=== PATIENT | male | born 1930 | race Caucasian/White ===

== ENCOUNTER 2016-05-16 12:08 | Inpatient (IN) | payer OTHER ==
[~2016-05-16] VITALS: Ht 165.1 cm; Wt 69.3 kg
--- NOTE | ~2016-05-16 | H ---
[facility] [address] [place] [address] HISTORY AND PHYSICAL Name: ALEN MUNOZ Room #: 208-P ADM IN M.R.#: [id number] Admission: 05/16/16 Attend Phys: Boo Person MD Discharge: Date of : 29 Report #: [id number] THIS REPORT FOR: //name// CC: Boo Person HISTORY OF PRESENT ILLNESS: This patient is well known to me through diabetic routine foot care and diabetic amputations over several years. The patient currently has a ulceration of the left second toe, left heel, right mid foot and right heel. He is receiving IV antibiotics per Dr. Granados. PAST MEDICAL HISTORY: ALLERGIES: No known drug allergies. MEDICATIONS: 1. Aspirin 81 mg 1 daily. 2. Felodipine extended release 10 mg 1 each morning. 3. Glipizide extended release 2.5 mg 1 each morning. 4. Tamsulosin hydrochloride 0.4 mg 1 each morning. 5. Bisoprolol fumarate 5 mg at bedtime. 6. Torsemide 20 mg Friday, Wednesdays, Fridays. 7. Sodium bicarbonate 650 mg 1 tablet twice a day. 8. Lantus at bedtime. 9. Timolol 0.5 mg 1 drop in each eye every morning. PAST MEDICAL HISTORY: Diabetes insulin-dependent, arthritis. PAST SURGICAL HISTORY: Foot amputations of the left fifth digit and a pacemaker by Dr. José Luis Story. His diabetes is managed by Dr. Boo Person. PHYSICAL EXAMINATION: VASCULAR STATUS: Dorsalis pedis pulses are 0/4 bilaterally. Posterior tibial pulses are 0/4 bilaterally. Capillary refill time is delayed. Edema is minimal bilaterally. NEUROLOGICAL: Protective sensation is absent bilaterally to above the ankle level. DERMATOLOGICAL: Left second digit dorsal aspect reveals an ulceration measuring approximately 4.5 cm in diameter with exposure to bone and necrotic tissue. Left plantar posterior heel reveals an ulceration to the subcutaneous level. No exposed bone. Right foot reveals an ulceration on the medial aspect of the mid foot at approximately the level of the medial cuneiform and navicular level, down to the subcutaneous level. The right heel medial aspect reveals an ulceration to the subcutaneous level. Both of these ulcerations revealed no signs of infection or exposure of bone. MUSCULOSKELETAL: The right foot displays Charcot foot deformity and hammertoe deformities of digits 2 through 5. Left foot reveals hammertoe deformities of digits 2, 3, 4. The fifth digit has previously been amputated to the [address] [address] HISTORY AND PHYSICAL Name: ALEN MUNOZ Room #: 208-P [facility] IN ..#: [id number] Admission: 05/16/16 Attend Phys: Boo Person MD Discharge: Date of : 29 Report #: [id number] metatarsophalangeal joint level. Dr. Reinaldo Hair performed interventional radiology yesterday and was able to reveal that the anterior tibial artery and peroneal arteries bilaterally were patent. The posterior tibial arteries bilaterally were not patent. Cultures of the left wounds revealed group B strep and Proteus. ASSESSMENT: Left second digit ulceration with underlying osteomyelitis. Left heel ulceration, subcutaneous level. The plan is amputation of the left second digit to the metatarsophalangeal joint level and debridement of left heel ulcer. New cultures will be taken within the operating room. The procedures and postoperative care course were discussed at length with the patient. Risks and complications were discussed including but not limited to bleeding, need for more surgery, delay in healing of wound, soft tissue and bone, continued infection, loss of foot, and loss of life. No guarantees were given. The patient states that he understands these risks. Upon completion of the procedures, the patient will be readmitted to the floor for continued IV antibiotics and extended postoperative care. <ELECTRONICALLY SIGNED> By: Shira Kapoor DPM 05/22/16 1736 1228 1337 Shira Kapoor DPM /nt
--- NOTE | ~2016-05-16 | O ---
[facility] [place] [address] [address] [place] [address] OPERATIVE REPORT Name: ALEN MUNOZ Room #: 208-P [facility] IN M.R.#: [id number] Admission: 05/16/16 Attend Phys: Boo Person MD Discharge: Date of : 29 Report #: [id number] THIS REPORT FOR: //name// CC: Boo Person DATE OF SERVICE: 05/22/2016 PREOPERATIVE DIAGNOSES: 1. Osteomyelitis of the left second digit. 2. Ulceration of the left heel. POSTOPERATIVE DIAGNOSES: 1. Osteomyelitis of the left second digit. 2. Ulceration of the left heel. NAME OF THE OPERATIONS: 1. Amputation of the left second digit to the metatarsophalangeal joint level. 2. Debridement of left heel ulceration. ANESTHESIA: IV sedation and local. HEMOSTASIS: None. ESTIMATED BLOOD LOSS: 3 mL. PROCEDURE IN DETAIL: Under mild sedation, the patient was brought to the operating room and placed on the operating table in the supine position. Following IV sedation, local anesthesia was obtained about surgery site utilizing a total of 12 mL of a 1:1 mixture of 1% lidocaine plain and 0.5% Marcaine plain. The foot was then scrubbed, prepped, and draped in the usual aseptic manner. Attention was then directed to the second digit where two converging semielliptical incisions were made at the base of the second digit. The incisions encompassed the second digit just distal to the second metatarsophalangeal joint. The incisions were then deepened through the subcutaneous tissues with care being taken to identify and retract all vital neural and vascular structures. All bleeders were ligated and cauterized as necessary. At this time, dissection was continued down to the level of the second metatarsophalangeal joint, which was then disarticulated utilizing a 15 blade. At this time, the second digit was then passed from the operative field in toto. This specimen was retained to be sent to pathology for both ____ and laparoscopic studies. The wound was then pulse lavaged with 1 liter of sterile normal saline and bacitracin solution. The remaining bleeders were then [facility] [address] [place] [address] OPERATIVE REPORT Name: TAMMYALEN Karlie Room #: 208-P ADM IN M.R.#: [id number] Admission: 05/16/16 Attend Phys: Boo Person MD Discharge: Date of : 29 Report #: [id number] cauterized and ligated as necessary. The wound was inspected for any remaining necrotic or devitalized tissue and it should be noted that none was found. The skin was then reapproximated and coapted utilizing 3-0 nylon in a simple interrupted suture technique. A Jayda drain was placed at midline incision. Attention was then directed to the plantar posterior aspect of the left heel where an ulceration was identified. Deep cultures from within the ulceration were obtained for both aerobic and anaerobic bacteria as well as fungal. The wound was then debrided sharply for any necrotic or devitalized tissue. The ulcer was then pulse lavaged of 2 liters of sterile normal saline and bacitracin solution. Both wounds were then dressed with Betadine-soaked Adaptic and covered with sterile compressive dressing consisting of 4 x 4s, ABD pads, Kerlix, and an Geovani wrap. The patient tolerated the procedures and anesthesia well. He was transferred to the recovery room and vital signs stable and vascular status intact to the left foot. Following a period of postoperative monitoring, the patient will be readmitted to the floor for continued IV antibiotics and a continued postoperative recovery. <ELECTRONICALLY SIGNED> By: Shira Kapoor DPM 05/23/16 1206 [id number] Shira Kapoor DPM /nt
--- NOTE | ~2016-05-16 | HC ---
[facility] [place] [address] [address] [place] [address] CONSULTATION Name: ALEN MUNOZ Room #: 208-P [facility] IN M.R.#: [id number] Admission: 05/16/16 Attend Phys: Boo Person MD Discharge: 05/27/16 Date of : 29 Report #: [id number] THIS REPORT FOR: //name// CC: Boo Person DATE OF SERVICE: 05/17/2016 PERSONAL PHYSICIAN: Boo Person M.D. CHIEF COMPLAINT: Left toe wound with diabetes. HISTORY OF PRESENT ILLNESS: This is an 85-year-old white male who I have followed for several years off and on for various infections of his feet and toes, requiring amputations. The patient recently had acute kidney injury, is now on hemodialysis. The patient most recently had an amputation and was currently rid of his toe and was rehabbing, brought to our skilled facility where it was noted by physician credit control assistant Nikki that his left second toe was necrotic with exposed bone and extremely foul odor. At that time, it was felt that the patient needed to be returned to the hospital for evaluation of this and most likely amputation of that toe if not even possible transmetatarsal amputation versus below the knee amputation. Arterial Doppler has just been performed and is pending. I have been asked to care for the patient while he is here in the hospital. The patient denies any other associated symptoms or complaints at this time. PAST MEDICAL HISTORY: Significant for end-stage renal disease, on hemodialysis; type 2 diabetes; anemia; pacemaker placement and hypertension. DRUG ALLERGIES: BACTRIM. CURRENT MEDICATIONS: Multiple, I reviewed the patient's medication list. FAMILY HISTORY: Not pertinent to current medical condition. REVIEW OF SYSTEMS: CONSTITUTIONAL: The patient denies fevers or chills. NEUROLOGIC: The patient denies numbness, tingling, weakness in arms or legs. EYES: No complaints. ENT: No complaints. CARDIAC: The patient denies chest pain, palpitations or peripheral edema. RESPIRATORY: The patient denies shortness of breath, cough or wheezes. GASTROINTESTINAL: The patient denies nausea, vomiting or abdominal pain. GENITOURINARY: The patient denies urgency or frequency. MUSCULOSKELETAL: No complaints. SKIN: The patient has a stage 2 decubitus ulcer around his coccygeal region as well as skin tear in his right forearm, unstageable ulceration over his [address] [place] [address] CONSULTATION Name: ALEN MUNOZ Room #: 208-P [facility] IN M.R.#: [id number] Admission: 05/16/16 Attend Phys: Boo Person MD Discharge: 05/27/16 Date of : 29 Report #: [id number] foot on his right mid foot, unstageable decubitus ulcer on his left heel and a necrotic ulcer over the dorsal aspect of his left second toe. PHYSICAL EXAMINATION: VITAL SIGNS: Stable. The patient is afebrile. GENERAL: This is an alert and oriented x 3, pleasant white male who appears chronically ill. HEENT: Normocephalic, atraumatic. Mucous membranes are dry. Pupils are round. Sclerae are white. NECK: Without JVD or masses. LUNGS: Clear. HEART: Regular. ABDOMEN: Soft, otherwise without organomegaly, rebound or guarding. EXTREMITIES: The patient moves all extremities without difficulty. Evaluation of sacrococcygeal area reveals a stage 2 decubitus ulcer in the coccygeal region. There is a skin tear in the right forearm. Bilateral lower extremities show 2+ edema with stasis dermatitis changes. There is also an unstageable ulceration on the right mid foot with eschar and an unstageable decubitus ulcer on his left heel, which is 100% slough filled with eschar and there is the necrotic left second toe, which is foul smelling with what was palpable bone exposed. Distal pulses are faint but the feet are warm. NEUROLOGIC: Cranial nerves 2-12 are grossly intact. Motor and sensory are grossly intact. LABORATORY DATA: White count 9.2, hemoglobin 8.6, BUN 26, creatinine 2.3 and albumin is low at 2.6. IMPRESSION: 1. Infected left second toe with necrosis and exposed bone consistent with osteomyelitis. 2. Diabetes mellitus. 3. End-stage renal disease, on hemodialysis. 4. Decubitus ulcer of the left heel, unstageable. 5. 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 6. History of peripheral arterial disease. 7. Generalized debility. PLAN: At this time, we will await the peripheral arterial Dopplers to see the extent of the patient's arterial disease and if any acute intervention can be performed. If so, we will have Dr. Chand perform this intervention. has also been consulted for evaluation of amputation of the second toe. I have also talked to the patient about the possibility that he might possibly need a transmetatarsal amputation or even possibly a below the knee amputation depending on how the arterial flow is. At this time, we will go ahead and [address] [place] [address] CONSULTATION Name: ALEN MUNOZ Room #: 208-P [facility] IN .R.#: [id number] Admission: 05/16/16 Attend Phys: Boo Person MD Discharge: 05/27/16 Date of : 29 Report #: [id number] . Wound orders have been put in by the wound care nurse, please see her notes. We will continue to follow the patient. <ELECTRONICALLY SIGNED> By: Stiven Forrester MD 05/31/16 0826 1426 1923 Stiven Forrester MD /nt
--- NOTE | ~2016-05-16 | H ---
[facility] [address] [place] [address] HISTORY AND PHYSICAL Name: ALEN MUNOZ Room #: 407-P ADM IN M.R.#: [id number] Admission: 05/16/16 Attend Phys: Boo Person MD Discharge: Date of : 29 Report #: [id number] THIS REPORT FOR: //name// CC: Boo Person DATE OF SERVICE: 05/16/2016 CHIEF COMPLAINT: Left foot wound. HISTORY OF PRESENT ILLNESS: The patient is an 85-year-old gentleman who was admitted from [facility] [place] today for evaluation of wounds and possible infection of the left foot. His history was complicated, and several months ago, he was admitted with a bowel obstruction and actually underwent surgical treatment of incarcerated left inguinal hernia that was complicated by an acute kidney injury event that was medically stabilized and then [facility]. About a month later, he was readmitted with general weakness, and at this point, his renal function deteriorated. Ultimately he had profuse edema and was started on hemodialysis, that stabilized and he was tolerating as an outpatient. He has had chronic Charcot foot wound on the right sole of his foot that has been fairly stable. There are wounds in the left foot that had been watched at the facility. Dr. Forrester knows him well and called stating that he had a second toe with possibly exposed bone and an area on the left heel. He is admitted for evaluation. PAST MEDICAL HISTORY: End-stage renal disease, now hemodialysis requiring; diabetes type 2; history of left incarcerated inguinal hernia, surgically treated in late 2016; anemia of chronic disease; bradycardia, he has a pacemaker implant; hypertension. PAST SURGICAL HISTORY: As above. FAMILY HISTORY: Noncontributory. SOCIAL HISTORY: He is a . His only family member is a niece who is in [place]. No known chronic alcohol or tobacco use. ALLERGIES: BACTRIM caused hyperkalemia. MEDICATIONS: Flomax 0.4 mg, bisoprolol 5 mg, aspirin 81 mg, Tylenol, timolol eye drops, NovoLog with meals. REVIEW OF SYSTEMS: He denies headache, chest pain, shortness of breath, abdominal pain, nausea, vomiting, diarrhea, constipation, dysuria, syncope. PHYSICAL EXAMINATION: [facility] [address] [place] [address] HISTORY AND PHYSICAL Name: ALEN MUNOZ Room #: 407-P [facility] IN ..#: [id number] Admission: 05/16/16 Attend Phys: Boo Person MD Discharge: Date of : 29 Report #: [id number] VITAL SIGNS: Temperature 36.4, pulse 94, respirations 18, blood pressure 135/68, O2 sat 95% on room air. GENERAL: He is awake and alert, sitting up in bed in no distress. He recognizes me. LUNGS: Clear. HEART: Regular. ABDOMEN: Soft, normoactive bowel sounds. EXTREMITIES: Just 1+ edema on the left lower extremity. There is some erythema of the ankle. There is a foul smell to the second toe with crusted open wound, may be some subcutaneous tissues exposed. There is a smaller 0.5 cm open area on the left heel. The right foot has an old Charcot joint deformity with scab on the plantar surface but no open areas ___ dry skin bilateral. NEUROLOGIC: Global strength 4/5 throughout. ASSESSMENT: 1. Infected left diabetic foot wound. 2. Suspect peripheral artery disease. 3. End-stage renal disease with dialysis done earlier today. 4. Diabetes type 2. 5. Hypertension. 6. Anemia of chronic disease. 7. Charcot joint with a wound to the right foot. PLAN: I will ask Dr. Forrester to see him who knows him quite well. We discussed the possibility of an angiogram that may well need to be coordinated with the time of his dialysis for consideration of procedure to the left leg. I will ask Dr. Granados to see him in consultation regarding infected diabetic foot wound, initial dose of vancomycin to be given tonight and other home medications to continue, Lovenox for DVT prophylaxis. <ELECTRONICALLY SIGNED> By: Boo Person MD 05/17/16 0937 [id number] Boo Person MD /nt
--- NOTE | ~2016-05-16 | HC ---
[facility] [address] [address] [place] [address] CONSULTATION Name: ALEN MUNOZ Room #: 407-P ADM IN M.R.#: [id number] Admission: 05/16/16 Attend Phys: Boo Person MD Discharge: Date of : 29 Report #: [id number] THIS REPORT FOR: //name// CC: Boo Person REASON FOR CONSULTATION: I was asked to evaluate concerning diabetic foot infection, left. HISTORY OF PRESENT ILLNESS: An 85-year-old transferred from [facility] with purulent drainage from his left second toe and increased pain in the left foot. He has a history of diabetes and peripheral vascular disease along with end-stage renal disease, now on hemodialysis. He dialyzes through a right chest dialysis catheter. He has Charcot foot deformity on the right. He has had increasing discomfort in the left heel associated with a wound and progressive wound to the left second toe. He denies any recent antibiotic usage. ALLERGIES: BACTRIM with hyperkalemia. MEDICATIONS: As noted on his MAR, now on vancomycin. PAST MEDICAL HISTORY: End-stage renal disease, diabetes, bradycardia with pacemaker, hypertension, anemia of chronic disease, incarcerated inguinal hernia status post repair. FAMILY HISTORY: Noncontributory. SOCIAL HISTORY: , nonsmoker, no significant alcohol intake. REVIEW OF SYSTEMS: No cough or sputum production, chest pain, nausea, vomiting or diarrhea. PHYSICAL EXAMINATION: VITAL SIGNS: Afebrile, hemodynamically stable. GENERAL: Sitting up in a wheelchair. HEENT: Unremarkable. CHEST: Clear. HEART: Regular, right chest dialysis catheter tunnel unremarkable. ABDOMEN: Soft and nontender. EXTREMITIES: Right lower extremity had changes of Charcot foot involving the ankle. He had small eschar to the mid foot pressure point. Diminished pulses in the foot, 1+ edema, 1+ dependent rubor involving the pretibial skin. Left lower extremity, diminished pulses throughout. Could not palpate pulses in the foot. Odorous drainage from the left second toe with sausage deformity and ulcer over the dorsum of the toe involving the middle phalanx and PIP region. Also had an eschar over the medial distal phalanx of toe #1. Also had a sinus tract to the heel medially. He had tenderness involving the heel region. X-ray [facility] [address] [place] [address] CONSULTATION Name: ALEN MUNOZ Room #: [facility] IN .R.#: [id number] Admission: 05/16/16 Attend Phys: Boo Person MD Discharge: Date of : 29 Report #: [id number] of the foot, no osteomyelitis evident. LABORATORY STUDIES: Creatinine 2.3, bicarbonate 32. Hemoglobin 8.6, white count 9.2, platelet count 215,000. Liver function tests normal. IMPRESSION: An 85-year-old with peripheral vascular disease and diabetes with infection of his left second toe and nonhealing wound to the left plantar heel. I suspect vascular insufficiency, underlying cause here. Recommend further vascular workup. It is evident that in June of 2005, he did have an arteriogram of the lower extremities, which did show distal occlusive disease. Would also consider vascular surgery evaluation. <ELECTRONICALLY SIGNED> By: Leonardo Granados MD 05/20/16 1010 1037 1130 Leonardo Granados MD /nt
--- NOTE | ~2016-05-16 | D ---
[facility] [place] [address] [place] [address] DISCHARGE SUMMARY Name: ALEN MUNOZ Room #: 208-P ADM IN M.R.#: [id number] Admission: 05/16/16 Attend Phys: Boo Person MD Discharge: Date of : 29 Report #: [id number] THIS REPORT FOR: //name// CC: Boo Person FINAL DIAGNOSES: 1. Peripheral artery disease of the left leg. 2. Diabetes foot wound of the second toe of the left foot. 3. End-stage renal disease. 4. Hypertension. 5. Diabetes type 2. 6. Anemia of chronic disease. PROCEDURES: 1. Arteriogram and angioplasty of the left superficial femoral artery and popliteal artery. 2. Amputation of the second left toe. 3. Hemodialysis. HOSPITAL COURSE: The patient was admitted for evaluation and treatment of the wound on his right foot, both heal and second toe. Ultimately, he was diagnosed with peripheral artery disease and was taken by IR for angioplasty, please see that report. Several days later, he had a second toe amputation and please see that separately dictated operative note. Wound care followed along with ID. Ultimately, he was adjusted to oral Augmentin. He tolerated dialysis as usual and his other home medications were continued. Blood sugars remained in the mid 100s off insulin. DISPOSITION: To be transferred to a long-term care shelter and [place]. He will be under the care of the inhouse physician and his outpatient hemodialysis. He will continue oral Augmentin for another week along with his other medications. He will be directed either to outpatient wound care in the [facility] or [facility] or follow up with Dr. Rodrigez as directed. <ELECTRONICALLY SIGNED> By: Boo Person MD 05/27/16 0945 1515 1608 Boo Person MD /nt
--- NOTE | ~2016-05-16 | HC ---
[facility] [place] [address] CONSULTATION Name: ALEN MUNOZ Room #: 208-P [facility] IN M.R.#: [id number] Admission: 05/16/16 Attend Phys: Boo Person MD Discharge: 05/27/16 Date of : 28 Report #: [id number] THIS REPORT FOR: //name// CC: Boo Person REASON FOR ADMISSION: Left second toe wound. REASON FOR CONSULTATION: End-stage renal disease. HISTORY OF PRESENT ILLNESS: The patient is an 85-year-old who is well known to us. He was started on dialysis in the recent admission when he was admitted due to bowel obstruction. 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 He follows the wound care. He was seen by the wound care and was found to have a second toe wound with possibly exposed bone on the area. He was admitted for further evaluation and management. The patient was unaware of this whole deal. He dialyzes every Friday, , Friday and he last dialyzed yesterday. PAST MEDICAL HISTORY: 1. Bowel obstructions. 2. End-stage renal disease. 3. Inguinal hernia. 4. Anemia of chronic disease. 5. Status post pacemaker insertions for bradycardia. 6. Hypertension. 7. End-stage renal disease maintained on dialysis. MEDICATIONS: 1. Tamsulosin. 2. Bisoprolol. 3. Torsemide. 4. Aspirin. 5. Timolol. ALLERGIES: BACTRIM. FAMILY HISTORY: No renal diseases in the family. SOCIAL HISTORY: He lives in a nursing facility. He used to live independently. No drug or alcohol abuse. REVIEW OF SYSTEMS: GENERAL: No fever or chills. CARDIOVASCULAR: No chest pain or palpitation. PULMONARY: No cough or hemoptysis. GASTROINTESTINAL: No nausea or vomiting. SKIN: As per the history of present illness. [facility] [address] [place] [address] CONSULTATION Name: ALEN MUNOZ Room #: 208-P [facility] IN [facility].#: [id number] Admission: 05/16/16 Attend Phys: Boo Person MD Discharge: 05/27/16 Date of : 28 Report #: [id number] PHYSICAL EXAMINATION: GENERAL: The patient is alert, oriented. VITAL SIGNS: Blood pressure is mildly elevated at 160/60. HEAD AND NECK: No jugular venous distention, no bruit, no thyromegaly. LUNGS: Clear to auscultation. CARDIOVASCULAR: Regular with no rub detected. ABDOMEN: Soft, nontender without hepatosplenomegaly. LOWER EXTREMITIES: Deformed bilateral feet with a left second toe wound. LABORATORY VALUES: Reviewed. His most recent creatinine is 1.6. He is due for dialysis today. ASSESSMENT, IMPRESSION, PLAN: 1. Acute kidney injury requiring dialysis in the past. 2. Peripheral vascular disease. 3. Bradycardia with a pacemaker. 4. Hypertension. 5. Left foot wound. 6. The patient's wound is currently being addressed by his primary care physician. 7. He has required dialysis in the past. There is no records of urine output; however, his creatinine from yesterday was 1.6. I will not plan on dialyzing him today until we get the labs. He might have recovered his kidney function and will follow and decide about that. 8. He is anemic and his anemia will need to be addressed accordingly. I will touch base with his dialysis units about his regimen and resume his outpatient anemia protocol. 9. Consent of exposed bone on the left second toe is being addressed by his primary care team. <ELECTRONICALLY SIGNED> By: Hui Armstrong MD 06/11/16 1523 [id number] Hui Armstrong MD /nt
--- NOTE | ~2016-05-16 | S ---
[facility] [place] [address] SURGICAL PATH RPT PROCEDURE Name: ALEN PANTOJA Room #: 208-P ADM IN M.R.#: [id number] Admission: 05/16/16 Date of : 28 Discharge: Report #: [id number] Path Case #: [id number] PATHOLOGY REPORT COLLECTION DATE: 05/22/2016 RECEIVED DATE: 05/23/2016 SUBMITTING PHYS: Dr. Shira Kapoor OTHER PHYS: Dr. Boo Person SPECIMEN(S) RECEIVED: A.Left foot second toe * * * * * * * * * * * * FINAL DIAGNOSIS: Toe, left foot second toe, amputation: - Marked acute inflammation extending into underlying bone, leading to acute osteomyelitis. - Skin margin viable and unremarkable. - Separate fragments of bone viable and unremarkable. (IUV:mgr; d/t: 05/24/16) PATHOLOGIST: Sharon Sellers M.D. REPORT ELECTRONICALLY SIGNED BY: Sharon Sellers M.D. DATE/TIME: 05/24/2016 16:46 * * * * * * * * * * * * GROSS PATHOLOGY: The specimen is received in formalin labeled "Alen Pantoja, left foot second toe". Received is an amputated digit measuring 3.6 x 2.5 x 2.2 cm in greatest dimensions. The bone margin is jagged in appearance and surrounded by moderate amount of white-yanez fibrous tissue. The nail is present displaying a light yanez slightly thickened appearance measuring 1.0 x 0.3 cm. Distal to the nail bed, there is a well-circumscribed, irregular in contour and light yanez to vogt-brown lesion measuring 1.8 x 1.7 cm, which is 0.2 cm from the closest skin margin. A full-thickness cross-section is submitted in cassettes A1 and A2, divided into distal and proximal aspects, following decalcification. Also received within the specimen container are additional segments of light yanez bone measuring 2.7 x 2.2 x 1.1 cm in greatest dimensions. Seat Builder sections of bone are submitted in cassette A3, following decalcification. (CAA; 05/23/2016) CLINICAL HISTORY: [address] [place] [address] SURGICAL PATH RPT PROCEDURE Name: ALEN PANTOJA Karlie Room #: 208-P ADM IN M.R.#: [id number] Admission: 05/16/16 Date of : 28 Discharge: Report #: [id number] Path Case #: [id number] Left foot, infected INITIAL CPT CODE(S): A; 03249, 81700 Professional services performed by [facility] at [facility] [address] [place] [address] Technical services performed by [facility] at [address] [place] [address], [facility] [address] [address]. [facility] [address] [place] [address] PHONE: [phone] DIRECTOR: Saúl Fofana M.D. * * * END OF REPORT * * *
[~2016-05-16 12:08] MED LIST: ACETAMINOPHEN325 M1 PO; ANTACID650 MG PO; ASPIR 8181 MG PO; BISOPROLOL FUMAR5 MG PO; DEMADEX20 MG PO; DOXYCYCLINE 10100 M2 PO; FELODIPINE ER10 MG PO; FLOMAX0.4 MG PO; GLUCOTROL5 MG PO; LEVEMIR SUBQ; NOVOLOG100 UNIT/1 SUBQ; TIMOLOL GL0.5 %/5 M1 OP
[2016-05-16 16:20] VITALS: BP 135/68
[2016-05-16 19:15] LABS: CALCIUM 7.8 mg/dL (8.5-10.1); CREATININE 1.6 mg/dL (0.6-1.3); POTASSIUM 3.6 mmol/L (3.5-5.1)
[2016-05-16 19:20] LABS: ALBUMIN 2.4 g/dL (3.4-5.0); TOTAL BILIRUBIN 0.5 mg/dL (<0.1-1.0); TOTAL PROTEIN 5.8 g/dL (6.4-8.2)
[2016-05-16 19:45] LABS: HEMATOCRIT 25.3 % (42.0-52.0); HEMOGLOBIN 8.6 gm/dL (14.0-18.0); MCH 32.2 pg (26.0-34.0); MCHC 34.2 % (28.0-37.0); MCV 94.2 fL (80.0-100.0); RBC 2.68 mil/uL (4.50-6.00); RDW 18.4 % (10.5-14.5); WBC 9.2 thou/uL (4.0-11.0)
[2016-05-16 20:30] VITALS: BP 137/51
[2016-05-17 03:35] VITALS: BP 160/60
[2016-05-17 07:42] LABS: ALBUMIN 2.6 g/dL (3.4-5.0); CALCIUM 8.1 mg/dL (8.5-10.1); CREATININE 2.3 mg/dL (0.6-1.3); PHOSPHORUS 3.8 mg/dL (2.5-4.9); POTASSIUM 4.2 mmol/L (3.5-5.1)
[2016-05-17 08:00] VITALS: BP 135/69
[2016-05-17 16:00] VITALS: BP 130/63
[2016-05-17 20:00] VITALS: BP 137/66
[2016-05-18 04:21] VITALS: BP 159/62
[2016-05-18 06:47] LABS: ALBUMIN 2.2 g/dL (3.4-5.0); PHOSPHORUS 4.8 mg/dL (2.5-4.9)
[2016-05-18 07:07] LABS: CREATININE 3.3 mg/dL (0.6-1.3)
[2016-05-18 07:41] VITALS: BP 149/57
[2016-05-18 15:39] VITALS: BP 112/55
[2016-05-18 19:53] VITALS: BP 160/56
[2016-05-19 04:00] VITALS: BP 149/50
[2016-05-19 08:00] VITALS: BP 155/57
[2016-05-19 11:23] LABS: HEMATOCRIT 26.9 % (42.0-52.0); MCHC 33.6 % (28.0-37.0); MCV 95.4 fL (80.0-100.0); RBC 2.82 mil/uL (4.50-6.00); WBC 7.7 thou/uL (4.0-11.0)
[2016-05-19 11:35] LABS: INR 1.1; PROTIME 11.3 Seconds (9.3-11.4)
[2016-05-19 11:44] LABS: CALCIUM 8.4 mg/dL (8.5-10.1); CREATININE 2.5 mg/dL (0.6-1.3); POTASSIUM 4.3 mmol/L (3.5-5.1)
[2016-05-19 16:00] VITALS: BP 156/77
[2016-05-19 19:30] VITALS: BP 148/62
[2016-05-20] VITALS (16 sets, daily range): BP systolic 115–175; BP diastolic 60–80
[2016-05-21] VITALS: BP 142/26; BP 142/62
[2016-05-21 03:37] VITALS: BP 158/57
[2016-05-21 04:42] LABS: HEMATOCRIT 22.3 % (42.0-52.0); HEMOGLOBIN 7.3 gm/dL (14.0-18.0); MCH 31.8 pg (26.0-34.0); MCHC 32.7 % (28.0-37.0); MCV 97.2 fL (80.0-100.0); RBC 2.29 mil/uL (4.50-6.00); RDW 19.3 % (10.5-14.5)
[2016-05-21 04:52] LABS: CALCIUM 7.8 mg/dL (8.5-10.1); CREATININE 3.3 mg/dL (0.6-1.3); POTASSIUM 4.2 mmol/L (3.5-5.1)
[2016-05-21 07:20] VITALS: BP 117/85
[2016-05-21 11:40] VITALS: BP 138/46
[2016-05-21 16:30] VITALS: BP 133/69
[2016-05-21 20:10] VITALS: BP 143/80
[2016-05-22 04:11] VITALS: BP 153/63
[2016-05-22 08:00] VITALS: BP 155/59
[2016-05-22 11:55] VITALS: BP 170/71
[2016-05-22 20:10] VITALS: BP 168/69
[2016-05-22 23:49] VITALS: BP 162/60
[2016-05-23 04:23] VITALS: BP 157/59
[2016-05-23 16:00] VITALS: BP 104/78
[2016-05-23 20:49] VITALS: BP 103/68
[2016-05-24 02:47] VITALS: BP 146/70
[2016-05-24 08:45] VITALS: BP 139/70
[2016-05-24] MEDS ORDERED: AUGMENTIN 500-1 EACH PO (10:04)
[2016-05-24 12:35] VITALS: BP 156/62
[2016-05-24 19:45] VITALS: BP 116/64
[2016-05-25 03:23] VITALS: BP 159/60
[2016-05-25 17:00] VITALS: BP 124/59
[2016-05-25 19:56] VITALS: BP 126/77
[2016-05-26 03:55] VITALS: BP 147/67
[2016-05-26 08:34] VITALS: BP 158/78
[2016-05-26 12:30] VITALS: BP 132/64
[2016-05-26 16:44] VITALS: BP 153/70
[2016-05-26 20:00] VITALS: BP 150/66
[2016-05-27 04:40] VITALS: BP 156/63
[2016-05-27 07:55] VITALS: BP 153/57
[2016-05-27 11:55] VITALS: BP 163/65
[2016-05-27 14:09] VITALS: BP 163/65
== END 2016-05-27 16:33 | DRG 252 ==
LOC: 4N 12:08 → 2N 05-20 16:32
PROVIDERS: Hospitalist; Internal Medicine Geriatric Medicine; Radiology Vascular & Interventional Radiology
PROC: 5A1D60Z (ICD-10-PCS; 2016-05-16)
PROC: 047L3Z1 Dilation of Left Femoral Artery using Drug-Coated Balloon, Percutaneous Approach (ICD-10-PCS; 2016-05-20)
PROC: 047N3ZZ Dilation of Left Popliteal Artery, Percutaneous Approach (ICD-10-PCS; 2016-05-20)
PROC: 0Y6S0Z0 Detachment at Left 2nd Toe, Complete, Open Approach (ICD-10-PCS; principal; 2016-05-22)
PROC: 0JBR0ZZ Excision of Left Foot Subcutaneous Tissue and Fascia, Open Approach (ICD-10-PCS; 2016-05-22)
DX: E11.51 Type 2 diabetes mellitus with diabetic peripheral angiopathy without gangrene (principal); N18.6 End stage renal disease; I12.0 Hypertensive chronic kidney disease with stage 5 chronic kidney disease or end stage renal disease; M86.8X7 Other osteomyelitis, ankle and foot; N17.9 Acute kidney failure, unspecified; E11.69 Type 2 diabetes mellitus with other specified complication; D63.8 Anemia in other chronic diseases classified elsewhere; R00.1 Bradycardia, unspecified; L89.620 Pressure ulcer of left heel, unstageable; M14.60 Charcot's joint, unspecified site; M19.90 Unspecified osteoarthritis, unspecified site; R53.81 Other malaise; H40.9 Unspecified glaucoma; E11.621 Type 2 diabetes mellitus with foot ulcer; Z88.1 Allergy status to other antibiotic agents; Z99.2 Dependence on renal dialysis; Z79.82 Long term (current) use of aspirin; Z79.4 Long term (current) use of insulin; Z79.899 Other long term (current) drug therapy; Z98.42 Cataract extraction status, left eye; Z98.41 Cataract extraction status, right eye
CPT/HCPCS: 10081; 10790; 32100; 50010; 50101; 50386; 56526; 56527; 57091; 62110; 62850; 70005

== ENCOUNTER 2017-12-02 19:13 | Emergency (ER) | payer OTHER ==
[~2017-12-02] VITALS: Ht 152.4 cm; Wt 63.5 kg
[~2017-12-02 19:13] MED LIST changes: +AUGMENTIN 500-1 EACH PO
[2017-12-02] MEDS ORDERED: LEVEMIR100 UNIT/1 SUBQ (20:16)
[2017-12-02] MEDS ORDERED: CARVEDILOL3.125 MG PO (20:17)
[2017-12-02] MEDS ORDERED: RENA-VITE TABL0.8 MG PO (20:18)
[2017-12-02] MEDS ORDERED: TUMS PO (20:19)
[2017-12-02] MEDS ORDERED: MIDODRINE HCL 55 M1 PO (20:20)
[2017-12-02] MEDS ORDERED: SENNA8.6 MG PO (20:21)
[2017-12-02] MEDS ORDERED: PANTOPRAZOLE SO40 M1 PO (20:22)
[2017-12-02 20:53] LABS: ABSOLUTE NEUTROPHILS 8.5 thou/uL (1.4-8.2); BASOPHILS 0.4 % (0.0-2.0); EOSINOPHILS 0.1 % (0.0-3.0); HEMATOCRIT 27.6 % (42.0-52.0); HEMOGLOBIN 9.4 gm/dL (14.0-18.0); LYMPHOCYTES 3.4 % (24.0-44.0); MCH 34.5 pg (26.0-34.0); MCHC 34.3 g/dL (28.0-37.0); MCV 100.5 fL (80.0-100.0); MONOCYTES 5.9 % (1.0-8.0); PLATELET COUNT 182 thou/uL (150-400); POLYS 90.2 % (36.0-66.0); RBC 2.74 mil/uL (4.50-6.00); RDW 15.4 % (10.5-14.5); WBC 9.5 thou/uL (4.0-11.0)
[2017-12-02 20:59] LABS: CALCIUM 8.6 mg/dL (8.5-10.1); CREATININE 3.8 mg/dL (0.7-1.3); POTASSIUM 4.8 mmol/L (3.5-5.1)
== END 2017-12-02 22:30 | disposition short-term general hospital (02) ==
LOC: ER 19:13
PROVIDERS: Physician Assistant
DX: S06.360A Traumatic hemorrhage of cerebrum, unspecified, without loss of consciousness, initial encounter (principal); I12.0 Hypertensive chronic kidney disease with stage 5 chronic kidney disease or end stage renal disease; E11.22 Type 2 diabetes mellitus with diabetic chronic kidney disease; N18.6 End stage renal disease; Z79.4 Long term (current) use of insulin; Z99.2 Dependence on renal dialysis; W18.39XA Other fall on same level, initial encounter; Y92.89 Other specified places as the place of occurrence of the external cause; Y93.89 Activity, other specified; Y99.8 Other external cause status